=== PATIENT | female | born 1945 | race Caucasian/White ===

== ENCOUNTER 2016-09-11 17:29 | Inpatient (IN) | payer MEDICARE ==
[~2016-09-11] VITALS: Ht 165.1 cm; Wt 58.5 kg
--- NOTE | 2016-09-11 19:00 | NUR ---
GPS/RN NOTE: ADMITTED FROM [facility] FOR 5150 HOLD FOR GD. PER HOLD PATIENT WAS AGITATED, UNCOOPERATIVE WITH CARE, SCREAMING, DISORGANIZED, ATTEMPTING TO PULL OUT LINES, GETTING OUT OF BED, AND STRIKING AT STAFF, HX OF BIPOLAR DISORDER, DEPRESSION/SCHIZOAFFECTIVE DISORDER. THE 5150 HOLD WAS REVIEWED AND APPEARS TO REFLECT THE PRESENTATION OF THE PATIENT. PATIENT IS LETHARGIC, CONFUSED, DISORGANIZED, DOES NOT KNOW HER NAME WHEN ASKED. RESPIRATION EVEN, BREATHING PATTERN NON-LABORED, NO ACUTE RESPIRATORY DISTRESS NOTED. UNKEMPT, DISHEVELED, POOR MEMORY, THOUGHT PROCESS CONFUSED, DISORIENTED. PATIENT IS UNDER THE CARE OF DR. GARCIA AND UNDER THE MEDICAL CARE OF DR. SANTACRUZ. PATIENT BELONGINGS WERE INVENTORIED AND CHECKED FOR CONTRABAND. PATIENT'S ADVANCED DIRECTIVE PREFERENCE, MEDICATION RECONCILIATION, IMMUNIZATION QUESTIONNAIRE, VALUABLES CHECKED IN TO SAFE. PATIENT'S BED LOCKED AND KEPT ON LOWEST POSITION. WILL CONTINUE TO MONITOR Q 15 MINS. TO MAINTAIN SAFETY.
--- NOTE | 2016-09-11 19:50 | NUR ---
GPS/RN NOTE: RECEIVED PATIENT UP ON THE EDILBERTO-CHAIR, NO APPARENT DISTRESS NOTED. PATIENT IS ASLEEP, RESPIRATION EVEN, BREATHING PATTERN NON-LABORED. NO VERBAL RESPONSE WHEN ENGAGED. WILL CONTINUE TO MONITOR.
[2016-09-11 20:00] VITALS: BP 136/65
[2016-09-11] MEDS ORDERED: GABA250S2 PO (23:25)
[2016-09-11] MEDS ORDERED: FLUO20CA36 PO (23:25)
[2016-09-11] MEDS ORDERED: ACET650T10 PO (23:25)
[2016-09-11] MEDS ORDERED: PANT40TA2 PO (23:25)
[2016-09-11] MEDS ORDERED: FERR324T11 PO (23:25)
[2016-09-11] MEDS ORDERED: DOCU-25 PO (23:25)
[2016-09-11] MEDS ORDERED: OMEP20CA10 PO (23:25)
[2016-09-11] MEDS ORDERED: ENOX40DI9 SQ (23:25)
[2016-09-11] MEDS ORDERED: LEVE1000 PO (23:25)
[2016-09-11] MEDS ORDERED: ASPI325T2 PO (23:25)
[2016-09-11] MEDS ORDERED: FAMO20TA80 PO (23:25)
[2016-09-11] MEDS ORDERED: CLON0.5T23 PO (23:25)
[2016-09-11] MEDS ORDERED: DONE5TAB3 PO (23:25)
[2016-09-11] MEDS ORDERED: DIPH12.56 PO (23:25)
[2016-09-11] MEDS ORDERED: MIRT15TA8 PO (23:25)
[2016-09-11] MEDS ORDERED: HALO100A2 PO (23:25)
[2016-09-11] MEDS ORDERED: ZOLP5TAB2 PO (23:25)
[2016-09-11] MEDS ORDERED: BISA10SU8 RC (23:25)
[2016-09-11] MEDS ORDERED: CLON-418 PO (23:25)
[2016-09-11] MEDS ORDERED: MULT1CAP64 PO (23:25)
[2016-09-11] MEDS ORDERED: OLAN2.5T3 PO (23:25)
[2016-09-11] MEDS ORDERED: LITH300C4 PO (23:25)
[2016-09-11] MEDS ORDERED: LEVO25TA7 PO (23:25)
--- NOTE | 2016-09-11 23:33 | NUR ---
GPS/RN NOTE: PAGED DR. YUDITH FITZPATRICK FOR MED RECONCILIATION
[2016-09-12 09:00] VITALS: BP 119/77
[2016-09-12] MEDS ORDERED: BISACODYL SUPP (10 MG) 10 MG/SUPP.RECT SUPP.RECT RC PRN (14:00)
[2016-09-12] MEDS ORDERED: diphenhydrAMINE HCL ELIX 25 MG/10 ML UDC PO PRN (14:00)
[2016-09-12] MEDS ORDERED: ACETAMINOPHEN 325 MG TABLET PO PRN (14:00)
[2016-09-12] MEDS ORDERED: CLONIDINE HCL 0.1 MG TABLET PO PRN (14:00)
[2016-09-12 16:00] VITALS: BP 119/60
[2016-09-12] MEDS ORDERED: DONEPEZIL 5 MG TABLET PO SCH ×2 (17:00→22:00)
[2016-09-12] MEDS: DOCUSATE SODIUM 100 MG CAPSULE PO SCH (17:33)
[2016-09-12] MEDS: OLANZAPINE 5 MG/TAB.RAPDIS PO SCH (17:33)
[2016-09-12] MEDS ORDERED: MAGNESIUM HYDROXIDE 30 ML UDC PO PRN (20:00)
[2016-09-12] MEDS ORDERED: MAG HYDROX/AL HYDROX/SIMETH 30 ML UDC PO PRN (20:00)
[2016-09-12 20:11] VITALS: BP 137/78
[2016-09-12] MEDS ORDERED: ZOLPIDEM TARTRATE 5 MG TABLET ONE (20:26)
[2016-09-12] MEDS: LEVETIRACETAM (250 MG) 250 MG TABLET PO SCH (21:07)
[2016-09-12] MEDS: MIRTAZAPINE 15 MG TABLET PO SCH (22:03)
[2016-09-12] MEDS: ZOLPIDEM TARTRATE 5 MG TABLET PO PRN (22:03)
[2016-09-13 07:09] LABS: ALBUMIN 3.5 g/dL (3.4-5.0); BILIRUBIN,TOTAL 0.4 mg/dL (0.2-1.0); CREATININE 1.3 mg/dL (0.6-1.3); POTASSIUM 4.1 mmol/L (3.5-5.1); TOTAL PROTEIN, SERUM 7.9 g/dL (6.4-8.2)
[2016-09-13 08:00] VITALS: BP 127/66
[2016-09-13] MEDS: ASPIRIN 325 MG TABLET PO SCH (09:18)
[2016-09-13] MEDS: OLANZAPINE 5 MG/TAB.RAPDIS PO SCH ×2 (09:20→17:06)
[2016-09-13] MEDS: LEVOTHYROXINE SODIUM 25 MCG TABLET PO SCH (09:20)
[2016-09-13] MEDS: PANTOPRAZOLE 40 MG TABLET.DR PO SCH (09:20)
[2016-09-13] MEDS: DOCUSATE SODIUM 100 MG CAPSULE PO SCH ×2 (09:20→17:05)
[2016-09-13] MEDS: MULTIVITAMINS,THERAPEUTIC 1 UDTAB TABLET PO SCH (09:20)
[2016-09-13] MEDS: LEVETIRACETAM (250 MG) 250 MG TABLET PO SCH ×2 (09:20→22:08)
[2016-09-13] MEDS: FERROUS SULFATE (325 MG) 325 MG/TAB TABLET PO SCH (09:21)
[2016-09-13] MEDS: GABAPENTIN 300 MG CAPSULE PO SCH (09:21)
[2016-09-13] MEDS: Z GUARD REMEDY 2 OZ OINT TP SCH (12:27)
[2016-09-13 16:10] VITALS: BP 120/77
[2016-09-13 19:56] VITALS: BP 114/63
[2016-09-13] MEDS: ZOLPIDEM TARTRATE 5 MG TABLET PO PRN (22:08)
[2016-09-13] MEDS: MIRTAZAPINE 15 MG TABLET PO SCH (22:08)
[2016-09-14 08:00] VITALS: BP 109/66
[2016-09-14] MEDS: DOCUSATE SODIUM 100 MG CAPSULE PO SCH ×2 (08:41→16:23)
[2016-09-14] MEDS: ASPIRIN 325 MG TABLET PO SCH (08:41)
[2016-09-14] MEDS: LEVETIRACETAM (250 MG) 250 MG TABLET PO SCH ×2 (08:41→21:53)
[2016-09-14] MEDS: LEVOTHYROXINE SODIUM 25 MCG TABLET PO SCH (08:41)
[2016-09-14] MEDS: MULTIVITAMINS,THERAPEUTIC 1 UDTAB TABLET PO SCH (08:41)
[2016-09-14] MEDS: GABAPENTIN 300 MG CAPSULE PO SCH (08:41)
[2016-09-14] MEDS: PANTOPRAZOLE 40 MG TABLET.DR PO SCH (08:42)
[2016-09-14] MEDS: FERROUS SULFATE (325 MG) 325 MG/TAB TABLET PO SCH (08:42)
[2016-09-14] MEDS: OLANZAPINE 5 MG/TAB.RAPDIS PO SCH ×2 (08:42→16:23)
[2016-09-14] MEDS: Z GUARD REMEDY 2 OZ OINT TP SCH (10:19)
[2016-09-14] MEDS: LORAZEPAM 0.5 MG TABLET PO PRN (11:09)
--- NOTE | 2016-09-14 12:52 | NUR ---
Initial discharge plan: Pt states she lives alone with her cat at [address] [place] [address] and wants to return home. Per pt, her brother helps her out, Andrez [phone] or [phone]. SW will assess for safety and will discuss with MD and brother to determine what's best discharge option for pt. SW will help form safe and proper discharge.
--- NOTE | 2016-09-14 14:02 | NUR ---
WOUND CARE CONSULT: PATIENT SEEN AND SKIN ASSESSMENT DONE. PATIENT ALTERED MENTATION, ABLE TO TURN AND REPOSITION HOWEVER NEEDS ASSIST AND PROMPTING, MARILINENT, JONATHAN 16. SEE TODAY'S SKIN ASSESSMENT IN PCS ALONG WITH RECOMMENDATIONS. RECOMMEND MOISTURE PROTECTION WITH Z GUARD AND PRESSURE PREVENTION MEASURES ORDERED. ALL DISCUSSED WITH NURSING STAFF. MD IN AGREEMENT WITH PLAN OF CARE. Addendum: 09/14/16 at 1405 by YESSY MANRIQUE WNDNU Amended: Links added.
[2016-09-14] MEDS: CLOTRIMAZOLE/BETAMETASONE DIPROPIONATE 15 GM TUBE TP SCH ×2 (15:47→17:35)
[2016-09-14 16:00] VITALS: BP 101/54
[2016-09-14 19:58] VITALS: BP 99/71
[2016-09-14] MEDS: ZOLPIDEM TARTRATE 5 MG TABLET PO PRN (21:53)
[2016-09-14] MEDS: MIRTAZAPINE 15 MG TABLET PO SCH (21:54)
[2016-09-15 08:08] VITALS: BP 113/78
[2016-09-15] MEDS: DOCUSATE SODIUM 100 MG CAPSULE PO SCH ×2 (08:18→16:07)
[2016-09-15] MEDS: FERROUS SULFATE (325 MG) 325 MG/TAB TABLET PO SCH (08:18)
[2016-09-15] MEDS: ASPIRIN 325 MG TABLET PO SCH (08:18)
[2016-09-15] MEDS: GABAPENTIN 300 MG CAPSULE PO SCH (08:19)
[2016-09-15] MEDS: LEVETIRACETAM (250 MG) 250 MG TABLET PO SCH ×2 (08:19→21:11)
[2016-09-15] MEDS: PANTOPRAZOLE 40 MG TABLET.DR PO SCH (08:20)
[2016-09-15] MEDS: LEVOTHYROXINE SODIUM 25 MCG TABLET PO SCH (08:20)
[2016-09-15] MEDS: OLANZAPINE 5 MG/TAB.RAPDIS PO SCH ×2 (08:21→16:07)
[2016-09-15] MEDS: MULTIVITAMINS,THERAPEUTIC 1 UDTAB TABLET PO SCH (08:21)
[2016-09-15] MEDS: LORAZEPAM 0.5 MG TABLET PO PRN (08:22)
--- NOTE | 2016-09-15 08:22 | NUR ---
[id number]: GAVE ATIVAN 1 MG PO DUE TO SEVERE ANXIETY UPON PT REQUEST AND WILL CONTINUE TO MONITOR FOR EFFECTIVENESS OF MEDICATION.
[2016-09-15] MEDS: CLOTRIMAZOLE/BETAMETASONE DIPROPIONATE 15 GM TUBE TP SCH ×2 (08:30→16:14)
[2016-09-15] MEDS: Z GUARD REMEDY 2 OZ OINT TP SCH (08:30)
--- NOTE | 2016-09-15 11:03 | NUR ---
HIMANSHU spoke with pt's brother/dpoa Andrez [phone] who notified the clinical social worker that he is working on getting pt. placed in an assisted living facility but would like her to go [facility] while working on finding an appropriate [facility]. He agrees that pt. cannot return home in the condition she is in right now.
--- NOTE | 2016-09-15 11:04 | NUR ---
HIMANSHU faxed a referral to [id number] [facility], [place] [address] . will follow up with Christine from facility.
--- NOTE | 2016-09-15 13:44 | NUR ---
[id number]: NOTIFIED DR. PATINO ABOUT LAB RESULTS ON 09/14/16: VITAMIN [id number], AND LAB RESULTS ON 09/13/16: ANION GAP= 16, BUN= 37, CALCIUM= 11.0, ALKALINE PHOSPHATASE= 123. DR. HERNANDEZ ORDERED CBC, BMP.
[2016-09-15 14:26] LABS: BASOPHILS % (AUTO) 0.3 % (0.0-2.0); EOSINOPHILS # (AUTO) 0.5 /CMM (0.0-0.7); EOSINOPHILS % (AUTO) 5.4 % (0.0-6.0); HEMATOCRIT 39 % (33-45); HEMOGLOBIN 12.6 g/dL (11.5-14.8); LYMPHOCYTES # (AUTO) 1.7 /CMM (0.8-4.8); LYMPHOCYTES % (AUTO) 19.3 % (20.0-44.0); MEAN CORPUSCULAR HEMOGLOBIN 28 PG (26.0-33.0); MEAN CORPUSCULAR HGB CONC 32 g/dl (31.0-36.0); MEAN CORPUSCULAR VOLUME 87 fL (82-100); MONOCYTES % (AUTO) 11.1 % (2.0-12.0); NEUTROPHILS # (AUTO) 5.7 /CMM (1.8-8.9); NEUTROPHILS % (AUTO) 63.9 % (43.0-81.0); PLATELET COUNT (AUTO) 432 /CMM (150-450); RDW COEFFICIENT OF VARIATION 13.6 (11.5-15.0); RED BLOOD CELL COUNT(AUTO) 4.48 MIL/uL (4.0-5.2); WHITE BLOOD COUNT (AUTO) 8.9 K/uL (4.3-11.0)
[2016-09-15 14:41] LABS: CALCIUM, SERUM 9.9 mg/dL (8.5-10.1); CREATININE 1.2 mg/dL (0.6-1.3); POTASSIUM 3.9 mmol/L (3.5-5.1)
[2016-09-15 14:52] LABS: CHOLESTEROL 155 mg/dL (<200); HDL CHOLESTEROL 34 mg/dL (40-60); LDL 98 mg/dL (0-99); TRIGLYCERIDES 90 mg/dL (30-150)
[2016-09-15 16:00] VITALS: BP 112/70
[2016-09-15 20:08] VITALS: BP 117/76
[2016-09-15] MEDS: MIRTAZAPINE 15 MG TABLET PO SCH (21:30)
[2016-09-15] MEDS ORDERED: OLANZAPINE 5 MG/TAB.RAPDIS PO SCH (22:00)
[2016-09-16] MEDS: ACETAMINOPHEN 325 MG TABLET PO PRN (00:56)
[2016-09-16] MEDS: ZOLPIDEM TARTRATE 5 MG TABLET PO PRN (00:56)
[2016-09-16 08:00] VITALS: BP 115/67
[2016-09-16] MEDS: MULTIVITAMINS,THERAPEUTIC 1 UDTAB TABLET PO SCH (08:40)
[2016-09-16] MEDS: LEVETIRACETAM (250 MG) 250 MG TABLET PO SCH ×2 (08:40→21:11)
[2016-09-16] MEDS: OLANZAPINE 5 MG/TAB.RAPDIS PO SCH ×2 (08:40→21:11)
[2016-09-16] MEDS: FERROUS SULFATE (325 MG) 325 MG/TAB TABLET PO SCH (08:40)
[2016-09-16] MEDS: ASPIRIN 325 MG TABLET PO SCH (08:40)
[2016-09-16] MEDS: DOCUSATE SODIUM 100 MG CAPSULE PO SCH ×2 (08:40→16:18)
[2016-09-16] MEDS: GABAPENTIN 300 MG CAPSULE PO SCH (08:40)
[2016-09-16] MEDS: PANTOPRAZOLE 40 MG TABLET.DR PO SCH (08:40)
[2016-09-16] MEDS: CLOTRIMAZOLE/BETAMETASONE DIPROPIONATE 15 GM TUBE TP SCH ×2 (09:06→16:51)
[2016-09-16] MEDS: LEVOTHYROXINE SODIUM 25 MCG TABLET PO SCH (09:59)
[2016-09-16] MEDS: Z GUARD REMEDY 2 OZ OINT TP SCH (10:00)
[2016-09-16 16:00] VITALS: BP 123/76
[2016-09-16 20:28] VITALS: BP 140/52
[2016-09-17] MEDS: ZOLPIDEM TARTRATE 5 MG TABLET PO PRN ×2 (00:13→22:05)
[2016-09-17] MEDS: LORAZEPAM 0.5 MG TABLET PO PRN ×3 (01:12→23:19)
[2016-09-17 08:00] VITALS: BP 107/51
[2016-09-17] MEDS: FERROUS SULFATE (325 MG) 325 MG/TAB TABLET PO SCH (08:15)
[2016-09-17] MEDS: ASPIRIN 325 MG TABLET PO SCH (08:15)
[2016-09-17] MEDS: LEVETIRACETAM (250 MG) 250 MG TABLET PO SCH ×2 (08:15→20:11)
[2016-09-17] MEDS: LEVOTHYROXINE SODIUM 25 MCG TABLET PO SCH (08:15)
[2016-09-17] MEDS: GABAPENTIN 300 MG CAPSULE PO SCH (08:16)
[2016-09-17] MEDS: PANTOPRAZOLE 40 MG TABLET.DR PO SCH (08:16)
[2016-09-17] MEDS: Fluoxetine 10 mg capsule PO SCH (08:16)
[2016-09-17] MEDS: DOCUSATE SODIUM 100 MG CAPSULE PO SCH ×2 (08:16→16:26)
[2016-09-17] MEDS: MULTIVITAMINS,THERAPEUTIC 1 UDTAB TABLET PO SCH (08:16)
[2016-09-17] MEDS: CLOTRIMAZOLE/BETAMETASONE DIPROPIONATE 15 GM TUBE TP SCH ×2 (08:17→17:37)
[2016-09-17] MEDS ORDERED: OLANZAPINE 5 MG/TAB.RAPDIS PO SCH (09:00)
[2016-09-17] MEDS: Z GUARD REMEDY 2 OZ OINT TP SCH (12:25)
[2016-09-17 16:04] VITALS: BP 112/68
[2016-09-17] MEDS: OLANZAPINE 5 MG/TAB.RAPDIS PO SCH ×2 (16:26→21:17)
[2016-09-17 20:00] VITALS: BP 113/68
[2016-09-18 08:00] VITALS: BP 117/67
[2016-09-18] MEDS: MULTIVITAMINS,THERAPEUTIC 1 UDTAB TABLET PO SCH (09:16)
[2016-09-18] MEDS: PANTOPRAZOLE 40 MG TABLET.DR PO SCH (09:16)
[2016-09-18] MEDS: DOCUSATE SODIUM 100 MG CAPSULE PO SCH ×2 (09:17→16:52)
[2016-09-18] MEDS: LEVOTHYROXINE SODIUM 25 MCG TABLET PO SCH (09:17)
[2016-09-18] MEDS: Fluoxetine 10 mg capsule PO SCH (09:17)
[2016-09-18] MEDS: LEVETIRACETAM (250 MG) 250 MG TABLET PO SCH ×2 (09:17→21:07)
[2016-09-18] MEDS: OLANZAPINE 5 MG/TAB.RAPDIS PO SCH ×3 (09:17→21:07)
[2016-09-18] MEDS: ASPIRIN 325 MG TABLET PO SCH (09:17)
[2016-09-18] MEDS: GABAPENTIN 300 MG CAPSULE PO SCH (09:18)
[2016-09-18] MEDS: Z GUARD REMEDY 2 OZ OINT TP SCH (09:19)
[2016-09-18] MEDS: CLOTRIMAZOLE/BETAMETASONE DIPROPIONATE 15 GM TUBE TP SCH ×2 (09:19→16:53)
[2016-09-18] MEDS: FERROUS SULFATE (325 MG) 325 MG/TAB TABLET PO SCH (09:21)
[2016-09-18] MEDS: LORAZEPAM 0.5 MG TABLET PO PRN (11:55)
--- NOTE | 2016-09-18 12:01 | NUR ---
HIMANSHU faxed a referral to [facility]; [address] [place] [address]; will follow up
[2016-09-18 16:09] VITALS: BP 134/75
[2016-09-18 20:00] VITALS: BP 107/76
[2016-09-18] MEDS: ZOLPIDEM TARTRATE 5 MG TABLET PO PRN (21:08)
[2016-09-19 08:00] VITALS: BP 130/58
--- NOTE | 2016-09-19 11:10 | NUR ---
DR. SALDAÑA GAVE AN ORDER FOR THE DENIAL RIGHTS FOR ROOM SEARCH TO LOOK FOR THE MISSING CORDLESS PHONES.
[2016-09-19] MEDS: PANTOPRAZOLE 40 MG TABLET.DR PO SCH (11:36)
[2016-09-19] MEDS: DOCUSATE SODIUM 100 MG CAPSULE PO SCH ×2 (11:36→17:52)
[2016-09-19] MEDS: ASPIRIN 325 MG TABLET PO SCH (11:36)
[2016-09-19] MEDS: LEVETIRACETAM (250 MG) 250 MG TABLET PO SCH ×2 (11:36→22:10)
[2016-09-19] MEDS: LEVOTHYROXINE SODIUM 25 MCG TABLET PO SCH (11:37)
[2016-09-19] MEDS: OLANZAPINE 5 MG/TAB.RAPDIS PO SCH ×3 (11:37→22:10)
[2016-09-19] MEDS: FERROUS SULFATE (325 MG) 325 MG/TAB TABLET PO SCH (11:37)
[2016-09-19] MEDS: GABAPENTIN 300 MG CAPSULE PO SCH (11:37)
[2016-09-19] MEDS: Fluoxetine 10 mg capsule PO SCH (11:37)
[2016-09-19] MEDS: CLOTRIMAZOLE/BETAMETASONE DIPROPIONATE 15 GM TUBE TP SCH ×2 (11:38→17:53)
[2016-09-19] MEDS: Z GUARD REMEDY 2 OZ OINT TP SCH (11:38)
[2016-09-19] MEDS: MULTIVITAMINS,THERAPEUTIC 1 UDTAB TABLET PO SCH (11:38)
[2016-09-19] MEDS: LORAZEPAM 0.5 MG TABLET PO PRN ×2 (11:39→17:52)
--- NOTE | 2016-09-19 11:39 | NUR ---
ADMINISTERED ATIVAN 0.5 MG PO PRN FOR ANXIETY, YELLING, PARANOIA, HARD TO FOLLOW DIRECTION, IRRITABLE, V/S TAKEN BP-130/58, P-100, CONTINUED MONITORING.
[2016-09-19 16:00] VITALS: BP 120/71
--- NOTE | 2016-09-19 17:52 | NUR ---
ADMINISTERED ATIVAN 0.5 MG PO PRN FOR ANXIETY, YELLING SCREAMING, DELUSIONAL, V/S TAKEN BP-120/71, P73, CONTINUED MONITORING.
[2016-09-19 20:00] VITALS: BP 126/73
[2016-09-20 08:00] VITALS: BP 116/70
[2016-09-20] MEDS: DOCUSATE SODIUM 100 MG CAPSULE PO SCH ×2 (09:14→17:26)
[2016-09-20] MEDS: ASPIRIN 325 MG TABLET PO SCH (09:14)
[2016-09-20] MEDS: Fluoxetine 10 mg capsule PO SCH (09:14)
[2016-09-20] MEDS: MULTIVITAMINS,THERAPEUTIC 1 UDTAB TABLET PO SCH (09:14)
[2016-09-20] MEDS: FERROUS SULFATE (325 MG) 325 MG/TAB TABLET PO SCH (09:15)
[2016-09-20] MEDS: OLANZAPINE 5 MG/TAB.RAPDIS PO SCH ×3 (09:15→21:18)
[2016-09-20] MEDS: GABAPENTIN 300 MG CAPSULE PO SCH (09:15)
[2016-09-20] MEDS: LEVETIRACETAM (250 MG) 250 MG TABLET PO SCH ×2 (09:15→21:19)
[2016-09-20] MEDS: LEVOTHYROXINE SODIUM 25 MCG TABLET PO SCH (09:15)
[2016-09-20] MEDS: PANTOPRAZOLE 40 MG TABLET.DR PO SCH (09:16)
[2016-09-20] MEDS: CLOTRIMAZOLE/BETAMETASONE DIPROPIONATE 15 GM TUBE TP SCH ×2 (09:17→17:27)
[2016-09-20] MEDS: Z GUARD REMEDY 2 OZ OINT TP SCH (09:17)
[2016-09-20 16:00] VITALS: BP 100/55
[2016-09-20 20:20] VITALS: BP 105/53
[2016-09-20] MEDS: ZOLPIDEM TARTRATE 5 MG TABLET PO PRN (21:19)
--- NOTE | 2016-09-20 22:32 | NUR ---
Ambien 5 mg/po 1 tab given for insomnia at 2118. Effective. Post 1 hour asleep. Will continue to monitor. Frequent visual check done.
[2016-09-21] MEDS: LORAZEPAM 0.5 MG TABLET PO PRN ×2 (02:18→17:34)
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
[2016-09-21 08:51] VITALS: BP 118/64
[2016-09-21] MEDS: DOCUSATE SODIUM 100 MG CAPSULE PO SCH ×2 (09:02→16:38)
[2016-09-21] MEDS: ASPIRIN 325 MG TABLET PO SCH (09:02)
[2016-09-21] MEDS: FERROUS SULFATE (325 MG) 325 MG/TAB TABLET PO SCH (09:03)
[2016-09-21] MEDS: LEVETIRACETAM (250 MG) 250 MG TABLET PO SCH ×2 (09:03→20:59)
[2016-09-21] MEDS: GABAPENTIN 300 MG CAPSULE PO SCH (09:03)
[2016-09-21] MEDS: PANTOPRAZOLE 40 MG TABLET.DR PO SCH (09:04)
[2016-09-21] MEDS: Fluoxetine 10 mg capsule PO SCH (09:04)
[2016-09-21] MEDS: MULTIVITAMINS,THERAPEUTIC 1 UDTAB TABLET PO SCH (09:04)
[2016-09-21] MEDS: LEVOTHYROXINE SODIUM 25 MCG TABLET PO SCH (09:05)
[2016-09-21] MEDS: Z GUARD REMEDY 2 OZ OINT TP SCH (09:06)
[2016-09-21] MEDS: CLOTRIMAZOLE/BETAMETASONE DIPROPIONATE 15 GM TUBE TP SCH ×2 (09:06→16:44)
[2016-09-21] MEDS: OLANZAPINE 5 MG/TAB.RAPDIS PO SCH ×3 (09:11→21:21)
--- NOTE | 2016-09-21 12:02 | NUR ---
HIMANSHU spoke with Andrez [phone] or [phone] and he states that the open case has not be closed as Medicare reassured him that facility can bill as it is a separate case. HIMANSHU notified Gia from [facility]; [address] [place] [address]; and brother, Andrez said he will call and speak with the facility.
[2016-09-21 16:00] VITALS: BP 100/55
--- NOTE | 2016-09-21 17:36 | NUR ---
[id number]: GAVE ATIVAN 0.5 MG PO FOR SEVERE ANXIETY UPON PT REQUEST AND EFFECTIVENESS OF MEDICATION
--- NOTE | 2016-09-21 17:40 | NUR ---
Discharge note: Pt. will possibly discharge on 09/22/[address] [place] [address]; via [facility]. BrotherAndrez [phone] or [phone] was notified of possible discharge. Please confirm with him. Pt. is calm and agrees with the plan to discharge. Pt. denies suicidal/homicidal ideations. Discharge paperwork should be signed.
[2016-09-21 21:37] VITALS: BP 100/74
[2016-09-21] MEDS: ACETAMINOPHEN 325 MG TABLET PO PRN (22:21)
[2016-09-21] MEDS: ZOLPIDEM TARTRATE 5 MG TABLET PO PRN (22:22)
--- NOTE | 2016-09-21 22:32 | NUR ---
GPS RN NOTE: OFFERED AMBIEN 5MG FOR INABILITY TO SLEEP AND TYLENOL 650 MG, CRUSHED MEDS AND PATIENT SPIT ALL OUT AND DECIDED TO REFUSE MEDICATION. WILL CONTINUE TO MONITOR [id number] FOR SAFETY
--- NOTE | 2016-09-22 | NUR ---
GPS RN NOTE: 193: RECEIVED A REPORT THAT PATIENT WAS CRAWLING TOWARDS RESTROOM, CONFUSED AND FORGETFUL. ASSISTED THE PATIENT BACK TO BED. ASSESSMENT DONE. NO VISUAL INJURY NOTED. EXTREMITIES ABLE TO MOVE WITHOUT C/O PAIN AND DISCOMFORT. NO SOB, NO ACUTE DISTRESS, BREATHING EVEN AND UNLABORED, PATIENT DENIES PAIN AND DISCOMFORT. PATIENT ALSO FORGOT WHAT HAPPENED. WILL CONTINUE TO MONITOR. 0000: PATIENT STABLE. NO VISUAL INJURY. NO SIGNIFICANT CHANGE OF CONDITION NOTED. NOTIFIED SORAIDA MATTHEWS WITH NO NEW ORDER GIVEN. WILL CONTINUE TO MONITOR. Addendum: 09/22/16 at 0329 by KRISTY SOTO II, RN ADDENDUM: WRONG PATIENT
[2016-09-22] MEDS: LEVOTHYROXINE SODIUM 25 MCG TABLET PO SCH (08:38)
[2016-09-22] MEDS: ASPIRIN 325 MG TABLET PO SCH (08:38)
[2016-09-22] MEDS: LEVETIRACETAM (250 MG) 250 MG TABLET PO SCH (08:39)
[2016-09-22] MEDS: DOCUSATE SODIUM 100 MG CAPSULE PO SCH (08:39)
[2016-09-22 08:40] VITALS: BP 97/57
[2016-09-22] MEDS: Fluoxetine 10 mg capsule PO SCH (08:40)
[2016-09-22] MEDS: GABAPENTIN 300 MG CAPSULE PO SCH (08:40)
[2016-09-22] MEDS: PANTOPRAZOLE 40 MG TABLET.DR PO SCH (08:40)
[2016-09-22] MEDS: MULTIVITAMINS,THERAPEUTIC 1 UDTAB TABLET PO SCH (08:41)
[2016-09-22] MEDS: OLANZAPINE 5 MG/TAB.RAPDIS PO SCH (08:41)
[2016-09-22] MEDS: CLOTRIMAZOLE/BETAMETASONE DIPROPIONATE 15 GM TUBE TP SCH (08:48)
[2016-09-22] MEDS: FERROUS SULFATE (325 MG) 325 MG/TAB TABLET PO SCH (08:48)
[2016-09-22] MEDS: Z GUARD REMEDY 2 OZ OINT TP SCH (08:49)
--- NOTE | 2016-09-22 10:17 | NUR ---
[id number]: DR. YUDITH FITZPATRICK SAID TO MONITOR FOR LEFT LEG SLIGHTLY SWOLLEN.
--- NOTE | 2016-09-22 13:40 | NUR ---
[id number]: PT IS 71 YEARS OLD FEMALE DISCHARGE TO [address] [facility] [place]. [address]; IN STABLE CONDITION. COMPLAINT WITH MEDICATIONS, COOPERATIVE WITH TREATMENT PLANS. PT DENIES SI/HI. BEHAVIOR IMPROVED,PSYCHIATRIC TX PLANS MET, MEDICAL TX PLANS DEFERRED FOR CONTINUAL MONITORING. EDUCATED PT ABOUT AFTER CARE PLAN AND COPY PROVIDED. RETURN PERSONAL BELONGINGS TO PT. MEDICATIONS RECONCILED WITH DR. GARCIA AND DR. YUDITH FITZPATRICK. REPORT GIVEN TO KATIE IN [facility] FOR CONTINUITY OF CARE. PT UNABLE TO SIGN DISCHARGE PAPERWORK. SKIN ASSESSMENT DONE. PT LEFT [facility]IA [facility]. Addendum: 09/22/16 at 1348 by HASEEB LEMUS RN PT LEFT AT 1345 PM ON 09/22/16
== END 2016-09-22 13:45 | DRG 885 ==
LOC: GPS 18:07
PROVIDERS: ADMIT Psychiatry & Neurology Psychiatry; ATTEND Family Medicine
DX: F29 Unspecified psychosis not due to a substance or known physiological condition (principal); F02.80 Dementia in other diseases classified elsewhere, unspecified severity, without behavioral disturbance, psychotic disturbance, mood disturbance, and anxiety; N17.0 Acute kidney failure with tubular necrosis; G92 Toxic encephalopathy; F32.3 Major depressive disorder, single episode, severe with psychotic features; G30.9 Alzheimer's disease, unspecified; E03.9 Hypothyroidism, unspecified; G40.909 Epilepsy, unspecified, not intractable, without status epilepticus; K21.9 Gastro-esophageal reflux disease without esophagitis; Z79.899 Other long term (current) drug therapy; Z73.6 Limitation of activities due to disability
CPT/HCPCS: 36415; 70450-TC; 80048-TC; 80053-TC; 80061-TC; 84443-TC; 85025-TC; 87081-TC